=== PATIENT | male | born 2000 | race Caucasian/White ===

== ENCOUNTER → 2020-04-28 | Outpatient (CLI) | payer OTHER | LOC: COL.RAD 08:49 | DX: M25.551 Pain in right hip (principal) | CPT/HCPCS: A9585; J3301; Q9967 ==

== ENCOUNTER → 2020-07-22 | Outpatient (CLI) | payer OTHER | LOC: COL.RAD 08:56 | DX: M54.12 Radiculopathy, cervical region (principal) ==